=== PATIENT | female | born 1980 | race Caucasian/White ===

== ENCOUNTER 2016-08-27 22:25 | Emergency (ER) | payer MEDICARE ==
[2014-11-13 11:45] VITALS: BMI 34.7
[~2016-08-27 22:25] MED LIST: NIFEDIPINE ER30 MG PO; PLAVIX75 MG PO; XANAX0.5 MG PO
== END 2016-08-27 23:00 | disposition home or self-care (01) ==
LOC: D.ER 22:25
DX: R10.9 Unspecified abdominal pain (principal); I10 Essential (primary) hypertension; Q05.9 Spina bifida, unspecified

== ENCOUNTER 2017-05-14 16:30 | Emergency (ER) | payer MEDICARE ==
[2014-11-13 11:45] VITALS: BMI 34.7
[2017-05-14 16:46] LABS: BASOPHILS 0.2 % (0-2); EOSINOPHILS 2.7 % (0-7); HEMATOCRIT 42.3 % (36.0-48.0); HEMOGLOBIN 14.5 g/dL (12-16); IMMATURE GRANULOCYTES 0.3 % (0-5); LYMPHOCYTES 26.5 % (15-50); MCH 31.7 pg (26.0-34.0); MCHC 34.3 g/dL (31.0-37.0); MCV 92.6 fL (80.0-100.0); MEAN PLATELET VOLUME 11.7 fL (7.4-10.4); MONOCYTES 5.6 % (2-11); NEUTROPHILS 64.7 % (40-80); PLATELET COUNT 203 10x3/uL (130-400); RBC 4.57 10x6/uL (4.00-5.40); RDW 12.2 % (11.5-14.5); WBC 9.8 10x3/uL (4.8-10.8)
[2017-05-14 16:57] LABS: ALBUMIN 3.6 g/dL (3.4-5.0); ALKALINE PHOSPHATASE 68 U/L (46-116); ALT (SGPT) 30 U/L (10-68); BILIRUBIN - TOTAL 0.18 mg/dL (0.2-1.3); CALC OSMOLALITY 280 mosm/kg (275-300); CALCIUM 8.8 mg/dL (8.5-10.1); CHLORIDE - SERUM 103 mmol/L (98-107); CREATININE - SERUM 0.9 mg/dL (0.6-1.3); GLUCOSE 90 mg/dL (74-106); POTASSIUM - SERUM 3.8 mmol/L (3.5-5.1); PROTEIN - SERUM 7.1 g/dL (6.4-8.2); SODIUM 141 mmol/L (136-145); UREA NITROGEN 12 mg/dL (7-18); eGFR NON AFRICAN AMERICAN 76 mL/min (90-120)
[2017-05-14 17:01] LABS: CREATINE KINASE 93 UL (21-215); TROPONIN-I < 0.017 ng/mL (0.000-0.060)
[2017-05-14 17:10] LABS: PROTIME 13.1 SECONDS (11.6-15.0)
[2017-05-14 17:12] LABS: D-DIMER-QUANTITATIVE < 0.27 ug/mLFEU (0.20-0.54)
[2017-05-14 17:23] LABS: APPEARANCE HAZY (CLEAR); BILIRUBIN NEGATIVE (NEGATIVE); COLOR YELLOW (YELLOW); GLUCOSE NEGATIVE (NEGATIVE); KETONE NEGATIVE (NEGATIVE); NITRITE NEGATIVE (NEGATIVE); PROTEIN NEGATIVE (NEGATIVE); UROBILINOGEN NORMAL (NORMAL)
[2017-05-14 17:25] LABS: UDS - AMPHET NEGATIVE QUAL (NEGATIVE); UDS - BARB NEGATIVE QUAL (NEGATIVE); UDS - BENZO POSITIVE QUAL (NEGATIVE); UDS - COCAINE NEGATIVE QUAL (NEGATIVE); UDS - OPIATE NEGATIVE QUAL (NEGATIVE); UDS - PCP NEGATIVE QUAL (NEGATIVE); UDS - THC NEGATIVE QUAL (NEGATIVE)
== END 2017-05-14 17:45 | disposition home or self-care (01) ==
LOC: D.ER 16:30
PROVIDERS: Emergency Medicine
DX: R07.9 Chest pain, unspecified (principal); R51 Headache; I10 Essential (primary) hypertension; Z85.028 Personal history of other malignant neoplasm of stomach; Q05.9 Spina bifida, unspecified; F17.200 Nicotine dependence, unspecified, uncomplicated

== ENCOUNTER 2017-11-28 12:36 | Emergency (ER) | payer MEDICARE ==
[2014-11-13 11:45] VITALS: BMI 34.7
== END 2017-11-28 16:08 | disposition home or self-care (01) ==
LOC: D.ER 12:36
DX: S86.912A Strain of unspecified muscle(s) and tendon(s) at lower leg level, left leg, initial encounter (principal); X58.XXXA Exposure to other specified factors, initial encounter; Y93.89 Activity, other specified; Y92.89 Other specified places as the place of occurrence of the external cause; M79.1 Myalgia; I10 Essential (primary) hypertension

== ENCOUNTER 2018-03-11 22:58 | Emergency (ER) | payer MEDICARE ==
[~2018-03-11] VITALS: Ht 170.2 cm; Wt 118.6 kg
[2018-03-11 23:01] VITALS: Ht 170.2 cm; Wt 118.6 kg
[2018-03-11] MEDS ORDERED: ELIQUIS5 MG PO (23:02)
[2018-03-11] MEDS ORDERED: BAYER CHEWABLE81 MG PO (23:03)
[2018-03-12 00:39] LABS: ANION GAP 9.7 mmol/L (8-16); CALCIUM 8.3 mg/dL (8.5-10.1); POTASSIUM - SERUM 3.7 mmol/L (3.5-5.1)
[2018-03-12] MEDS ORDERED: NORCO 7.5/325 T1 TA1 PO (01:21)
[2018-03-12 02:19] VITALS: BP 138/78
== END 2018-03-12 02:15 | disposition home or self-care (01) ==
LOC: D.ER 22:58
PROVIDERS: Family Medicine
DX: S80.12XA Contusion of left lower leg, initial encounter (principal); W17.89XA Other fall from one level to another, initial encounter; Y93.89 Activity, other specified; Y92.019 Unspecified place in single-family (private) house as the place of occurrence of the external cause; Z86.73 Personal history of transient ischemic attack (TIA), and cerebral infarction without residual deficits; I10 Essential (primary) hypertension